=== PATIENT | male | born 1945 | race Caucasian/White ===

== ENCOUNTER 2016-04-18 09:48 | Day surgery (SDC) | payer OTHER, MEDICARE ==
[~2016-04-18 09:48] MED LIST: PROPOFOL 500 MG/50 ML EMU IV ONE
[2016-04-18 11:50] VITALS: BP 136/87; PULSE 57; RESP 18; TEMP 97.6; O2SAT 97
== END 2016-04-18 12:15 | disposition home or self-care (01) | DRG 951 ==
LOC: SURG 09:48
PROVIDERS: ATTEND Surgery
DX: Z12.11 Encounter for screening for malignant neoplasm of colon (principal); D12.5 Benign neoplasm of sigmoid colon; K64.8 Other hemorrhoids
CPT/HCPCS: 99001